=== PATIENT | male | born 1980 | race Caucasian/White ===

== ENCOUNTER 2016-08-20 12:02 | Emergency (ER) | payer OTHER ==
[~2016-08-20] VITALS: Ht 175.3 cm; Wt 117.9 kg
[~2016-08-20 12:02] MED LIST: DEPAKOTE; DEPAKOTE 250MG250 M1 PO; ZOFRAN ODT4 MG PO
[2016-08-20] MEDS ORDERED: CLEOCIN HCL300 MG PO (13:00)
[2016-08-20] MEDS ORDERED: IBUPROFEN 600600 M1 PO (13:00)
[2016-08-20 13:50] VITALS: BP 128/88
== END 2016-08-20 13:50 | disposition home or self-care (01) ==
LOC: ER 12:02
DX: K04.7 Periapical abscess without sinus (principal); E05.90 Thyrotoxicosis, unspecified without thyrotoxic crisis or storm; F17.210 Nicotine dependence, cigarettes, uncomplicated; F10.99 Alcohol use, unspecified with unspecified alcohol-induced disorder